=== PATIENT | male | born 1975 | race Caucasian/White ===

== ENCOUNTER 2016-12-09 08:30 | Inpatient (IN) | payer OTHER ==
[~2016-12-09] VITALS: Ht 170.2 cm; Wt 128.1 kg
[~2016-12-09 08:30] MED LIST: CLEOCIN150 MG PO; ENDOCET 5-3251 EACH GT; Glucophage PO; LABETALOL HCL200 MG PO; LEVEMIR100 UNIT/2 SC; LISINOPRIL20 MG PO; NOVOLOG PE100 UNITS/ SC; Zestril,Prinivil PO
[2016-12-09] MEDS ORDERED: HUMALOG KW200 UNIT/1 SC ×4 (08:54→13:58)
[2016-12-09] MEDS ORDERED: ATORVASTATIN CA20 MG PO (08:55)
[2016-12-09] MEDS ORDERED: TRILIPIX135 MG PO (08:55)
[2016-12-09] MEDS ORDERED: TRESIBA FL200 UNIT/1 SC (08:55)
[2016-12-09] MEDS ORDERED: ERGOCALCIF50000 UNIT PO (08:56)
[2016-12-09 09:06] LABS: BASOPHIL COUNT 0.1 K/uL (0-0.1); EOSINOPHIL (%) 0.4 % (0-5); EOSINOPHIL COUNT 0.1 K/uL (0-0.3); HEMATOCRIT 50.8 % (38.0-50.0); IMMATURE GRANULOCYTE (%) 0.6 % (0.0-0.7); IMMATURE GRANULOCYTE COUNT 0.1 K/uL; INSTRUMENT ABS NEUTROPHIL CT 13.4 K/uL; LYMPHOCYTE COUNT 1.4 K/uL (1.0-2.8); MCH 28.8 PG (29.0-34.0); MCHC 35.8 G/DL (30.0-36.0); MCV 80.3 FL (86-99); MEAN PLAT.VOLUME 10.7 uM^3 (9.0-12.4); MONOCYTE (%) 5.6 % (3-12); MONOCYTE COUNT 0.9 K/uL (0-0.8); NEUTROPHIL (%) 84.5 % (45-76); NEUTROPHIL COUNT 13.4 K/uL (1.8-6.4); PLATELET COUNT 150 K/uL (156-360); RBC DIS.WIDTH-CV 12.4 % (11.8-14.6); RBC DIS.WIDTH-SD 35.2 % (39-53); RED BLOOD COUNT 6.33 M/uL (4.00-5.50); WHITE BLOOD COUNT 15.8 K/uL (4.1-10.2)
[2016-12-09 09:14] LABS: CHLORIDE 101 mEq/L (99-109); POTASSIUM 3.9 mEq/L (3.7-5.4); SODIUM 135 mEq/L (136-147)
[2016-12-09 09:16] LABS: GLUCOSE 240 mg/dL (70-99)
[2016-12-09 09:17] LABS: ANION GAP 13 MEQ/L (2-14)
[2016-12-09 09:19] LABS: ALKALINE PHOSPHATASE 59 IU/L (3-129)
[2016-12-09 09:20] LABS: GFR ESTIMATE (CALCULATED) > 59 mL/min/
[2016-12-09 09:21] LABS: UREA NITROGEN (BUN) 17 mg/dL (9-23)
[2016-12-09 09:23] LABS: LIPASE 57 U/L (1.0-51.0)
[2016-12-09 10:39] LABS: ADD MIUA? YES; BILIRUBIN NEGATIVE; BLOOD NEGATIVE; COLOR YELLOW ((YELLOW)); GLUCOSE (STRIP) 150; KETONES NEGATIVE; LEUKOCYTES NEGATIVE; NITRITE NEGATIVE; PROTEIN (STRIP) >=500; SPECIFIC GRAVITY 1.017 (1.000-1.030); UROBILINOGEN 0.2 MG/DL (0.2-1.0)
[2016-12-09 10:42] LABS: BACTERIA NONE SEEN /HPF; EPITHELIAL CELLS RARE /HPF; MUCUS TRACE /LPF; RED BLOOD CELLS 0-5 /HPF (0-5); UCUL ADDED? NO; WHITE BLOOD CELLS 0-5 /HPF (0-5)
[2016-12-09 13:01] LABS: POINT-OF-CARE METER ID UU14100415
[2016-12-09 17:14] LABS: POINT-OF-CARE METER ID UU13113717
[2016-12-09 18:51] VITALS: BP 147/81
[2016-12-09 23:27] VITALS: BP 127/64
[2016-12-10 06:37] LABS: ALKALINE PHOSPHATASE 43 IU/L (3-129); ANION GAP 7 MEQ/L (2-14); CHLORIDE 102 MEQ/L (99-109); GFR ESTIMATE (CALCULATED) > 59 mL/min/; GLUCOSE 157 mg/dL (70-99); LIPASE 54 U/L (1.0-51.0); POTASSIUM 3.9 MEQ/L (3.7-5.4); SAMPLE HEMOLYSIS CHECK 0; SAMPLE ICTERIC CHECK 0; SAMPLE LIPEMIA CHECK 0; SODIUM 137 MEQ/L (136-147); TOTAL BILIRUBIN 0.9 MG/DL (0.0-1.0); UREA NITROGEN (BUN) 15 mg/dL (9-23)
[2016-12-10 07:04] LABS: EOSINOPHIL (%) 0.3 % (0-5); HEMATOCRIT 43.9 % (38.0-50.0); IMMATURE GRANULOCYTE (%) 0.8 % (0.0-0.7); IMMATURE GRANULOCYTE COUNT 0.1 K/uL; INSTRUMENT ABS NEUTROPHIL CT 12.8 K/uL; LYMPHOCYTE COUNT 1.3 K/uL (1.0-2.8); MCH 28.6 PG (29.0-34.0); MCHC 34.2 G/DL (30.0-36.0); MCV 83.6 FL (86-99); MEAN PLAT.VOLUME 10.1 uM^3 (9.0-12.4); MONOCYTE (%) 7.8 % (3-12); MONOCYTE COUNT 1.2 K/uL (0-0.8); NEUTROPHIL (%) 82.8 % (45-76); NEUTROPHIL COUNT 12.8 K/uL (1.8-6.4); PLATELET COUNT 111 K/uL (156-360); RBC DIS.WIDTH-CV 12.6 % (11.8-14.6); RBC DIS.WIDTH-SD 38.2 % (39-53); RED BLOOD COUNT 5.25 M/uL (4.00-5.50); WHITE BLOOD COUNT 15.5 K/uL (4.1-10.2)
[2016-12-10 08:27] VITALS: BP 131/67
[2016-12-10 09:10] LABS: POINT-OF-CARE METER ID UU13113717
[2016-12-10 16:12] LABS: HDL CHOLESTEROL 28 MG/DL (Desirable>=40); LDL CHOLESTEROL 87 mg/dL (Desirable<100); NON-HDL CHOLESTEROL 120 mg/dL (Desirable<160); TOTAL CHOLESTEROL 148 mg/dL (Desirable<200); TRIGLYCERIDES 165 MG/DL (Normal: <150)
[2016-12-10 21:43] LABS: POINT-OF-CARE METER ID UU13113717
[2016-12-10 23:39] VITALS: BP 133/79
[2016-12-11 06:04] LABS: HEMATOCRIT 39.9 % (38.0-50.0); MCH 29.4 PG (29.0-34.0); MCHC 34.8 G/DL (30.0-36.0); MCV 84.4 FL (86-99); MEAN PLAT.VOLUME 10.6 uM^3 (9.0-12.4); PLATELET COUNT 96 K/uL (156-360); RBC DIS.WIDTH-CV 12.7 % (11.8-14.6); RED BLOOD COUNT 4.73 M/uL (4.00-5.50); WHITE BLOOD COUNT 12.7 K/uL (4.1-10.2)
[2016-12-11 06:33] LABS: ANION GAP 6 MEQ/L (2-14); CHLORIDE 103 MEQ/L (99-109); GFR ESTIMATE (CALCULATED) > 59 mL/min/; GLUCOSE 175 mg/dL (70-99); SAMPLE HEMOLYSIS CHECK 0; SAMPLE ICTERIC CHECK 0; SAMPLE LIPEMIA CHECK 0; SODIUM 137 MEQ/L (136-147); UREA NITROGEN (BUN) 9 mg/dL (9-23)
[2016-12-11 08:54] VITALS: BP 159/85
[2016-12-11 12:09] LABS: POINT-OF-CARE METER ID UU14174225
[2016-12-11 17:00] LABS: POINT-OF-CARE METER ID UU13113717
[2016-12-11 20:38] VITALS: BP 154/92
[2016-12-11 20:45] LABS: POINT-OF-CARE METER ID UU13113717
[2016-12-12 00:33] VITALS: BP 131/71
[2016-12-12 05:34] LABS: EOSINOPHIL (%) 1.7 % (0-5); EOSINOPHIL COUNT 0.2 K/uL (0-0.3); HEMATOCRIT 39.2 % (38.0-50.0); IMMATURE GRANULOCYTE (%) 0.5 % (0.0-0.7); INSTRUMENT ABS NEUTROPHIL CT 6.4 K/uL; LYMPHOCYTE COUNT 1.4 K/uL (1.0-2.8); MCH 29.3 PG (29.0-34.0); MCHC 34.9 G/DL (30.0-36.0); MCV 83.9 FL (86-99); MEAN PLAT.VOLUME 10.7 uM^3 (9.0-12.4); MONOCYTE (%) 8.5 % (3-12); MONOCYTE COUNT 0.7 K/uL (0-0.8); NEUTROPHIL (%) 73.6 % (45-76); NEUTROPHIL COUNT 6.4 K/uL (1.8-6.4); PLATELET COUNT 99 K/uL (156-360); RBC DIS.WIDTH-CV 12.5 % (11.8-14.6); RBC DIS.WIDTH-SD 37.9 % (39-53); RED BLOOD COUNT 4.67 M/uL (4.00-5.50); WHITE BLOOD COUNT 8.7 K/uL (4.1-10.2)
[2016-12-12 06:36] LABS: ANION GAP 7 MEQ/L (2-14); CHLORIDE 102 MEQ/L (99-109); GFR ESTIMATE (CALCULATED) > 59 mL/min/; GLUCOSE 154 mg/dL (70-99); LIPASE 17 U/L (1.0-51.0); SAMPLE HEMOLYSIS CHECK 0; SAMPLE ICTERIC CHECK 0; SAMPLE LIPEMIA CHECK 0; SODIUM 137 MEQ/L (136-147); UREA NITROGEN (BUN) 9 mg/dL (9-23)
[2016-12-12 08:05] VITALS: BP 136/81
[2016-12-12] MEDS ORDERED: AMLODIPINE BESY10 MG PO (11:01)
== END 2016-12-12 14:00 | disposition home or self-care (01) | DRG 438 ==
LOC: EME 08:30 → EDOF 14:44 → ENRESERV 14:47 → 5SOUTH 16:03
PROVIDERS: Internal Medicine; Internal Medicine Gastroenterology; Physician Assistant
DX: K85.90 Acute pancreatitis without necrosis or infection, unspecified (principal); J96.01 Acute respiratory failure with hypoxia; K29.80 Duodenitis without bleeding; D69.6 Thrombocytopenia, unspecified; K56.7 Ileus, unspecified; I16.0 Hypertensive urgency; I10 Essential (primary) hypertension; E11.9 Type 2 diabetes mellitus without complications; E78.00 Pure hypercholesterolemia, unspecified; E78.1 Pure hyperglyceridemia; F17.200 Nicotine dependence, unspecified, uncomplicated; E66.01 Morbid (severe) obesity due to excess calories; Z68.41 Body mass index [BMI] 40.0-44.9, adult; Z79.4 Long term (current) use of insulin
CPT/HCPCS: 71020; 74177; 76705; 80048; 80053; 80061; 81003; 82948; 83690; 85025; 85027; 87040; 94799; 99281; 99285; J0744; J1650; J1815; J1885; J2270; J2405; J7030; J7120; S0030